=== PATIENT | female | born 1940 | race Caucasian/White ===

== ENCOUNTER 2016-12-28 06:46 | Inpatient (IN) | payer MEDICARE, OTHER ==
[~2016-12-28] VITALS: Ht 165.1 cm; Wt 68.2 kg
[2016-12-28] VITALS (10 sets, daily range): BP systolic 105–146; BP diastolic 54–88; PULSE 60–67; RESP 17–20; TEMP 98.7; Ht 165.1 cm; Wt 68.2 kg
[~2016-12-28 06:46] MED LIST: ACET-2047 PO; AMLO-145 PO; ASPI-664 PO; ATOR40TA68 PO; BISA10SU75 PO; CALC-543 PO; CLOP75TA27 PO; DEXL30CA2 PO; LISI10TA2 PO; LYR75 PO; METO-448 PO; NABU-83 PO; PANT40TA3 PO; ROSU5TAB5 PO; TRAM50TA2 PO
[2016-12-28] MEDS ORDERED: SOD CHLORIDE 0.9% 500 ML IV STA (06:52)
[2016-12-28] MEDS ORDERED: ONDANSETRON 4 MG INJ IV STA (06:52)
[2016-12-28] MEDS ORDERED: KETOROLAC 15 MG INJ IV STA (06:52)
--- NOTE | 2016-12-28 06:52 | ERA ---
ER Documentation Chief Complaint Date/Time DATE: 12/28/16 TIME: 06:51 Chief Complaint HPI 76-year-old woman here for abdominal pain and vomiting, history of gastritis, denies hematemesis denies blood per rectum or melena. She denies fevers or chills, no chest pain or shortness of breath, no loss of consciousness. ROS All systems reviewed and are negative except as per history of present illness. Medications Home Meds Reported Medications Potassium Chloride* (Potassium Chloride*) 8 Meq Capsule.er, 8 MEQ PO DAILY, CAP 12/28/16 Furosemide* (Furosemide*) 20 Mg Tablet, 20 MG PO DAILY, #60 TAB 12/28/16 Pantoprazole* (Protonix*) 40 Mg Tablet.dr, 40 MG PO DAILY, TAB 04/19/15 Metoprolol Tartrate* (Lopressor*) 25 Mg Tab, 25 MG PO BID, #60 TAB 04/19/15 Lisinopril* (Lisinopril*) 10 Mg Tablet, 10 MG PO DAILY, #30 TAB 04/19/15 Acetaminophen* (Acetaminophen*) 650 Mg Tablet, 650 MG PO Q6H Y for PAIN AND OR ELEVATED TEMP, #30 TAB 04/19/15 Clopidogrel Bisulfate (Clopidogrel) 75 Mg Tablet, 75 MG PO DAILY, #30 TAB 04/19/15 Atorvastatin* (Atorvastatin*) 40 Mg Tablet, 40 MG PO QHS, #30 TAB 04/19/15 Rosuvastatin Calcium* (Crestor*) 5 Mg Tablet, 10 MG PO 09/01/13 Pregabalin* (Lyrica*) 75 Mg Capsule, 75 MG PO DAILY, CAP 09/01/13 Dexlansoprazole (Dexilant) 30 Mg Cap..nina, 60 MG PO 09/01/13 Aspirin* (Aspirin* EC) 81 Mg Tablet.dr, 81 MG PO DAILY 09/01/13 Amlodipine Besylate* (Amlodipine Besylate*) 5 Mg Tablet, 5 MG PO DAILY, TAB 09/01/13 Tramadol HCl (Tramadol HCl) 50MG Tab, 50 MG PO BID, TAB 09/01/13 Nabumetone* (Nabumetone*) 750 Mg Tablet, 750 MG PO BID, TAB 09/01/13 Calcium Carb & Cit-Vitamin D3 (Calcium + D3 ER) 1 Each Tablet.er, 1 EACH PO DAILY 09/01/13 Bisacodyl* (Bisacodyl*) 10 Mg Supp, 10 MG PO DAILY Y for CONSTIPATION, SUPP 09/01/13 Allergies Allergies: Coded Allergies: No Known Allergy (Unverified , 09/02/13) PMhx/Soc Coronary artery disease status post non-STEMI with previous PCI and stent placement, atrial fibrillation, hypertension, dyslipidemia, osteoarthritis History of Surgery: Yes (back surgery and L hand surgery) Anesthesia Reaction: No Hx Neurological Disorder: No Hx Respiratory Disorders: No Hx Cardiac Disorders: Yes (HTN and dyslipidemia) Hx Psychiatric Problems: No Hx Miscellaneous Medical Probl: No Hx Alcohol Use: No Hx Substance Use: No Hx Tobacco Use: No FmHx Family History: No diabetes Physical Exam Vitals Per nurses records Physical Exam GENERAL: Well-developed, appears dehydrated, nauseous, afebrile HEENT: Dry mucous membranes, pink conjunctiva, no cervical spine tenderness or step-off deformities, no goiter, no jaundice or icterus, extraocular movements intact without pain. No submandibular induration, and no pharyngeal erythema NEURO: Alert and oriented 3, cranial nerves II through XII intact bilaterally, pupils equal round reactive to light, no focal deficits or facial asymmetry, sensation intact distally Strength 5/5 in upper and lower extremities bilaterally CARDIAC: Regular rate and rhythm, no murmurs rubs or gallops LUNGS: Clear bilaterally no wheezing crackles or stridor ABDOMEN: Soft nontender, no guarding, no rigidity, no rebound, no psoas sign no obturator sign. Normoactive bowel sounds SKIN: Warm and dry to touch, no abrasions, contusions, or hematomas, no lacerations, no ecchymosis, no target lesions, and without ulcers EXTREMITIES: No clubbing cyanosis or edema, calves are bilaterally symmetrical, no Homans sign, no popliteal cord sign. Distal pulses equal and bilateral PSYCH: Normal affect without agitation or irritability Results 24 hrs Laboratory Tests Test 12/28/16 07:05 White Blood Count 6.510^3/ul Red Blood Count 4.8510^6/ul Hemoglobin 13.7g/dl Hematocrit 39.1% Mean Corpuscular Volume 80.6fl Mean Corpuscular Hemoglobin 28.2pg Mean Corpuscular Hemoglobin Concent 35.0g/dl Red Cell Distribution Width 13.3% Platelet Count 62285^3/UL Mean Platelet Volume 10.7fl Neutrophils % 58.0% Lymphocytes % 27.8% Monocytes % 12.9% Eosinophils % 0.8% Basophils % 0.2% Nucleated Red Blood Cells % 0.0/100WBC Neutrophils # 3.810^3/ul Lymphocytes # 1.810^3/ul Monocytes # 0.810^3/ul Eosinophils # 0.110^3/ul Basophils # 0.010^3/ul Nucleated Red Blood Cells # 0.010^3/ul Sodium Level 122mmol/L Potassium Level 2.9mmol/L Chloride Level 84mmol/L Carbon Dioxide Level 23mmol/L Anion Gap 18 Blood Urea Nitrogen 12mg/dl Creatinine 0.77mg/dl Glucose Level 143mg/dl Calcium Level 10.2mg/dl Total Bilirubin 0.6mg/dl Direct Bilirubin 0.00mg/dl Indirect Bilirubin 0.6mg/dl Aspartate Amino Transf (AST/SGOT) 29IU/L Alanine Aminotransferase (ALT/SGPT) 42IU/L Alkaline Phosphatase 107IU/L Troponin I 0.027ng/ml Total Protein 8.0g/dl Albumin 4.7g/dl Globulin 3.30g/dl Albumin/Globulin Ratio 1.42 Lipase 111U/L Current Medications Medications (Trade) Dose Ordered Sig/Mabel Route PRN Reason Start Time Stop Time Status Last Admin Dose Admin Sodium Chloride (NS) 500 ml @ 500 mls/hr Q1H STAT IV 12/28/16 06:52 12/28/16 07:51 DC 12/28/16 07:13 Ondansetron HCl (Zofran Inj) 4 mg ONCE STAT IV 12/28/16 06:52 12/28/16 06:54 DC 12/28/16 07:10 Ketorolac Tromethamine (Toradol) 15 mg ONCE STAT IV 12/28/16 06:52 12/28/16 06:54 DC 12/28/16 07:10 Lorazepam (Ativan) 0.5 mg ONCE ONCE IV 12/28/16 07:00 12/28/16 07:01 DC 12/28/16 07:11 Potassium Chloride 40 meq 40 meq ONCE STAT PO 12/28/16 08:12 12/28/16 08:13 DC 12/28/16 08:18 Potassium Chloride 250 ml @ 62.5 mls/hr ONCE ONCE IVPB 12/28/16 08:30 12/28/16 12:29 DC 12/28/16 09:25 Magnesium Sulfate/ Dextrose (Magnesium Sulfate 1 Gm/D5W) 100 ml @ 100 mls/hr ONCE ONCE IVPB 12/28/16 08:30 12/28/16 09:29 DC 12/28/16 08:20 Procedures/MDM IV line was established patient placed on human relations professor rhythm strip revealed a sinus rhythm at about 70 bpm with upright P and T waves. Patient was afebrile. EKG performed, read by me revealed a normal sinus rhythm at 72 bpm, normal axis , right ventricular conduction delay at 100 ms with prolonged QT of 510 ms and flattened P and T waves consistent with acute hypokalemia. I administered 1 L normal saline intravenously, lorazepam 1 mg IV, Toradol 15 mg IV, Zofran 4 mg IV. Urine analysis was negative for infection. CBC was normal, electrolytes revealed hypokalemia 2.9, liver function tests normal, troponin negative. I administered potassium supplementation as well as magnesium 2 g IV. Critical Care: Time: 54 minutes, this was time separate from other billable procedures. Treatments/Evaluations: Close monitoring and treatment of unstable vital signs, cardiorespiratory, and neurologic status, while maintaining tight balance of fluid, respiratory, and cardiac interventions. Patient will be admitted to telemetry setting for continued medical management gastroenterology consultation Departure Diagnosis: Primary Impression: Abdominal pain Qualified Code: R10.13 - Epigastric pain Additional Impressions: Gastritis Qualified Code: K29.01 - Acute superficial gastritis with hemorrhage Acute hypokalemia Dehydration Condition: SEUN Gillespie MD Dec 28, 2016 06:52
[2016-12-28] MEDS ORDERED: LORAZEPAM 2 MG INJ IV ONE (07:00)
--- NOTE | 2016-12-28 07:28 | RADRPT ---
PROCEDURE: XR Chest 1 View. CLINICAL INDICATION: Abnormal breath sounds, abdominal pain. TECHNIQUE: AP view of the chest was obtained. COMPARISON: September 01, 2013 FINDINGS: The heart size is within normal limits. Calcified atherosclerosis is noted in the aorta. Median jose rnotomy wires overlie the heart. Subsegmental atelectasis is noted in the left lower lobe. No conso lidations are identified. No pneumothorax is seen. Osseous structures are intact. IMPRESSION: Calcified atherosclerosis in the aorta. Subsegmental atelectasis in the left lower lobe. RPTAT: AA .Landon Pulido MD, Date Time Electronically viewed and signed by .Landon Pulido MD, on 12/28/2016 07:27 .P/
[2016-12-28 07:31] LABS: BASOPHILS % 0.2 % (0.0-2.0); EOSINOPHILS # 0.1 10^3/ul (0.0-0.5); EOSINOPHILS % 0.8 % (0.0-7.0); HEMATOCRIT 39.1 % (37.0-47.0); HEMOGLOBIN 13.7 g/dl (12.0-16.0); LYMPHOCYTES # 1.8 10^3/ul (0.8-2.9); LYMPHOCYTES % 27.8 % (15.0-51.0); MEAN CORPUSCULAR HEMOGLOBIN 28.2 pg (29.0-33.0); MEAN CORPUSCULAR VOLUME 80.6 fl (82.0-101.0); MEAN PLATELET VOLUME 10.7 fl (7.4-10.4); MONOCYTE # 0.8 10^3/ul (0.3-0.9); MONOCYTES % 12.9 % (0.0-11.0); NEUTROPHIL # 3.8 10^3/ul (1.6-7.5); PLATELET COUNT 331 10^3/UL (140-415); RED BLOOD COUNT 4.85 10^6/ul (4.20-5.40); RED CELL DISTRIBUTION WIDTH 13.3 % (11.5-14.5); WHITE BLOOD COUNT 6.5 10^3/ul (4.8-10.8)
[2016-12-28 07:47] LABS: ALBUMIN 4.7 g/dl (3.3-4.9); ALBUMIN/GLOBULIN RATIO 1.42; BILIRUBIN,INDIRECT 0.6 mg/dl (0-1.1); BILIRUBIN,TOTAL 0.6 mg/dl (0.2-1.3); CALCIUM 10.2 mg/dl (8.4-10.2); CREATININE 0.77 mg/dl (0.44-1.00)
[2016-12-28 07:57] LABS: TROPONIN-I 0.027 ng/ml (0.00-0.12)
[2016-12-28 08:11] LABS: POTASSIUM 2.9 mmol/L (3.5-5.1)
[2016-12-28] MEDS ORDERED: POTASSIUM CHLORIDE (SR) 20 MEQ TAB PO STA (08:12)
[2016-12-28] MEDS ORDERED: MAGNESIUM SULFATE 1 GM/D5W 100 ML IVPB ONE (08:30)
[2016-12-28] MEDS ORDERED: POTASSIUM CHLORIDE 250 ML IVPB ONE (08:30)
[2016-12-28] MEDS ORDERED: FURO20TA3 PO (09:36)
[2016-12-28] MEDS ORDERED: POTA8CAP PO (09:36)
--- NOTE | 2016-12-28 14:08 | HP ---
DATE OF ADMISSION: 12/28/2016 CHIEF COMPLAINT: Abdominal pain with episodes of nausea and vomiting, and burning with urination. HISTORY OF PRESENT ILLNESS: The patient is a 76-year-old Telugu female with a past medical history positive for coronary artery disease. The patient has a history of non ST-elevation myocardial infarction in April 2015, and had a cardiac catheterization with angioplasty and stenting of the ostial left circumflex artery and aspiration thrombectomy of the distal left main and proximal left circumflex artery. Patient underwent open heart surgery two months ago at [facility] by Dr. Wood. The patient currently follows with her quality officer Dr. Lopez at [place]. The patient denies any chest pain. Denies any shortness of breath. However, patient stated that she developed abdominal pain a couple of days ago, accompanied by episodes of nausea and vomiting. The patient denies hematochezia. The patient also stated that she had EGD about 4-5 months ago at [facility]. Does not remember the name of the market manager. The patient was diagnosed with gastritis and was on gastritis medication for the last 4 months, which she has currently stopped, which was currently discontinued by her primary care physician. In the emergency room, patient underwent a chest x-ray, which revealed calcified atherosclerosis in aorta, subsegmental atelectasis in the left lower lobe, and median sternotomy wires overlying the heart. The patient denies any fever. No leukocytosis noted. However, patient had low potassium of 2.9, which was replaced in the emergency room. The patient will be admitted for further evaluation and management. PAST MEDICAL HISTORY: It is positive for coronary artery disease status post recent CABG, use of SAMUEL according to patient's son; however, details are not available. History of atrial fibrillation, hypertension, dyslipidemia, osteoarthritis. Past surgical history of recent CABG 2 months ago, history of cardiac stent placement in April 2015 per HPI, status post bilateral carpal tunnel syndrome surgery many years ago, status post cholecystectomy and status post back surgery for herniated disc many years ago. FAMILY HISTORY: Positive for extensive coronary artery disease in multiple family members, including mother, father and brothers. The patient's brother of ID at age 50. SOCIAL HISTORY: Patient denies any alcohol use and denies any tobacco use. Denies any illicit drug use. Lives with family. ALLERGIES: NO KNOWN ALLERGIES. MEDICATIONS: Include metoprolol, lisinopril, amlodipine, aspirin, atorvastatin, bisacodyl, Plavix, Lasix, nabumetone, potassium chloride, Lyrica, tramadol, calcium carbonate plus vitamin D, Dexilant, Crestor. REVIEW OF SYSTEMS: Twelve-point review of system is negative, unless what is mentioned in HPI. PHYSICAL EXAMINATION: GENERAL: Well-developed, well-nourished female, in no acute distress. VITAL SIGNS: Temperature is 97.8, pulse is 72, blood pressure 123/54, respiratory rate 17, oxygen saturation is 95 percent on room air. HEENT: Head is atraumatic, normocephalic. Pupils equal, round, reactive to light and accommodation. Oral mucosa is pink and moist. NECK: Supple. No cervical lymphadenopathy. No thyromegaly. CHEST: Lungs clear bilaterally. There are no rhonchi, wheezes, rales noted. CARDIOVASCULAR: Normal S1, S2. No murmurs, gallops, clicks, rubs noted. Chest surgical incision is intact, healed. ABDOMEN: Round, soft, nondistended. Bowel sounds present. Patient has generalized tenderness. EXTREMITIES: No edema, clubbing, cyanosis. Pulses equal bilaterally, 2+. SKIN: No rash. No petechiae noted. NEUROLOGIC: Patient is awake, alert, and oriented x4. Motor strength is 5/5 in all extremities. LABORATORY DATA: On admission, CBC white blood cells 6.5, hemoglobin 13.7, hematocrit 39.1, platelets 331. Chemistry, sodium is 122, potassium 2.9, chloride 84, carbon dioxide 23, anion gap of 18, BUN is 12, creatinine 0.77, glucose 143, AST 29, ALT is 42, alkaline phosphate is 107, lipase is 111. ASSESSMENT AND PLAN: 1. Abdominal pain. We will obtain a UA and urine culture to rule out urinary tract infection. 2. History of urinary retention. Continue to monitor intake and output. Will ask Dr. Camacho to see patient in gastroenterology consultation for abdominal pain. 3. Severe hypokalemia. Potassium replaced. Continue to monitor potassium. 4. Status post recent coronary artery bypass graft. Continue patient on aspirin and Plavix. 5. Dyslipidemia. Continue Crestor. 6. Hypertension. 7. Paroxysmal atrial fibrillation. Patient is currently in sinus rhythm. 8. Will continue Pepcid for peptic ulcer disease prophylaxis. Sequential compression devices for deep venous thrombosis prophylaxis. 9. Further recommendations based on clinical course. Plan of care discussed with Dr. Jaquez. Dictated By: Samantha Hough NP /eugenio/shine /Document#: [id number]
[2016-12-28 15:44] LABS: ADD UMIC NO; UR ASCORBIC ACID NEGATIVE (NEGATIVE); UR BILIRUBIN (Dip) NEGATIVE (NEGATIVE); UR BLOOD (Dip) NEGATIVE (NEGATIVE); UR CLARITY CLEAR (CLEAR); UR COLOR YELLOW (YELLOW); UR GLUCOSE (Dip) NEGATIVE (NEGATIVE); UR KETONES (Dip) NEGATIVE (NEGATIVE); UR LEUKOCYTE ESTERASE (Dip) NEGATIVE Leu/ul (NEGATIVE); UR NITRITE (Dip) NEGATIVE (NEGATIVE); UR TOTAL PROTEIN (Dip) NEGATIVE (NEGATIVE); UR UROBILINOGEN (Dip) NEGATIVE (NEGATIVE)
[2016-12-28] MEDS: ATORVASTATIN 40 MG TAB PO SCH (21:01)
[2016-12-28] MEDS: METOPROLOL 25 MG TAB PO SCH (21:03)
[2016-12-29] VITALS (12 sets, daily range): BP systolic 102–119; BP diastolic 55–63; PULSE 50–75; RESP 16–19
[2016-12-29 07:33] LABS: BASOPHILS % 0.3 % (0.0-2.0); EOSINOPHILS # 0.1 10^3/ul (0.0-0.5); EOSINOPHILS % 0.8 % (0.0-7.0); HEMATOCRIT 34.5 % (37.0-47.0); HEMOGLOBIN 11.8 g/dl (12.0-16.0); LYMPHOCYTES # 1.5 10^3/ul (0.8-2.9); LYMPHOCYTES % 18.9 % (15.0-51.0); MEAN CORPUSCULAR HEMOGLOBIN 28.2 pg (29.0-33.0); MEAN CORPUSCULAR HGB CONC 34.2 g/dl (32.0-37.0); MEAN CORPUSCULAR VOLUME 82.3 fl (82.0-101.0); MEAN PLATELET VOLUME 10.8 fl (7.4-10.4); MONOCYTE # 0.7 10^3/ul (0.3-0.9); MONOCYTES % 8.4 % (0.0-11.0); NEUTROPHIL # 5.6 10^3/ul (1.6-7.5); NEUTROPHILS % 71.3 % (39.0-77.0); PLATELET COUNT 272 10^3/UL (140-415); RED BLOOD COUNT 4.19 10^6/ul (4.20-5.40); RED CELL DISTRIBUTION WIDTH 13.8 % (11.5-14.5); WHITE BLOOD COUNT 7.8 10^3/ul (4.8-10.8)
[2016-12-29 08:06] LABS: CALCIUM 9.2 mg/dl (8.4-10.2); CREATININE 0.64 mg/dl (0.44-1.00); POTASSIUM 3.9 mmol/L (3.5-5.1)
[2016-12-29] MEDS: ASPIRIN (EC) 81 MG TAB PO SCH (09:05)
[2016-12-29] MEDS: PREGABALIN 75 MG CAP PO SCH (09:06)
[2016-12-29] MEDS: CLOPIDOGREL 75 MG TAB PO SCH (09:06)
[2016-12-29] MEDS: AMLODIPINE 5 MG TAB PO SCH (09:09)
[2016-12-29] MEDS: METOPROLOL 25 MG TAB PO SCH ×2 (09:10→20:02)
[2016-12-29] MEDS: LISINOPRIL 10 MG TAB PO SCH (09:10)
[2016-12-29] MEDS ORDERED: BARIUM SULF 2% 450 ML BTL (BERRY SMOOTHIE) PO SCH ×2 (09:30)
--- NOTE | 2016-12-29 10:28 | CONS ---
DATE OF ADMISSION: 12/28/2016 DATE OF CONSULTATION: 12/29/[address] Jaquez: Thank you for the referral. REASON FOR CONSULTATION: Epigastric pain for last 4 months. HISTORY OF PRESENT ILLNESS: A 76-year-old female with a history of coronary artery disease, status post coronary artery bypass graft 2 months ago at [facility], who comes to the hospital complaining of epigastric pain for the last 4 months. She had upper endoscopy done at [facility] by another semiconductor processing technician. Gastritis was diagnosed. She was treated with PPI for 2 months. No relief in her symptoms. The patient has lost significant weight partly due to her hospitalization and bypass surgery and partly she claims due to gastritis. No GI bleeding. No chest pain. No shortness of breath now. 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 She has a persistent low potassium. PAST MEDICAL HISTORY: Positive for coronary artery disease, status post coronary artery bypass graft, SAMUEL, atrial fibrillation hypertension, dyslipidemia, osteoarthritis. PAST SURGICAL HISTORY: Bypass surgery, bilateral carpal tunnel syndrome surgery. As per the son, patient did not have a gallbladder surgery. Back surgery. FAMILY HISTORY: Positive for extensive coronary artery disease. SOCIAL HISTORY: Denies of smoking or drinking alcohol. No recreational drugs. MEDICATION: Reviewed. REVIEW OF SYSTEMS: Otherwise negative. Discussed with the son and all the information gathered from him. PHYSICAL EXAMINATION: GENERAL APPEARANCE: Thin built, Nourished, not in distress. VITAL SIGNS: Stable. HEENT: Unremarkable. NECK: Supple. No thyromegaly. No lymphadenopathy. HEART: No murmur, gallop, or click. LUNGS: Clear. ABDOMEN: Benign, except for the tenderness in the epigastric area. EXTREMITIES: No edema. NEUROLOGIC: Grossly within normal limits. LABORATORY AND DIAGNOSTIC DATA: Hematocrit is 34, normochromic normocytic. Potassium was 2.9, it has corrected. Urine is negative. IMAGING STUDIES: Has not been done, but the chest x-ray here was negative. IMPRESSION: 1. Persistent epigastric pain. Etiology is unclear. Rule out pancreatic lesion, rule out gallbladder or biliary pathology. Rule out peptic ulcer disease or gastritis. 2. Status post coronary artery bypass graft. 3. Hypertension. 4. Dyslipidemia. 5. Atrial fibrillation. 6. Urinary retention. PLAN: Continue all the medication. We will get a CAT scan of the abdomen and pelvis done. As per the son, it was not done in last 6-8 months and after that, we will decide whether patient needs endoscopy or not. She had a colonoscopy 6 years ago, which was negative as per the son. Dictated By: Ulices Camacho MD /eugenio/joi /Document#: [id number] ; Dr. Jaquez
--- NOTE | 2016-12-29 13:27 | RADRPT ---
PROCEDURE: CT scan of the abdomen and pelvis without IV contrast. CLINICAL INDICATION: Abdominal pain, nausea, vomiting and dysuria. Status post coronary artery dis ease with CABG 2 months ago. TECHNIQUE: Thin section axial, coronal and sagittal images were performed through the abdomen and pelvis without contrast utilizing a [employer] VCT [employer] CT scanner. Radiation Dose: CTDI: 11.63 and DLP: 576.29 One or more of the following dose reduction techniques were used: - Automated exposure control. - Adjustment of the mA and/or kV according to patient size. Use of iterative reconstruction technique. COMPARISON: Chest x-ray 05/15/2016 06:18 a.m. FINDINGS: Soft tissues: There is a scar in the midline of the lower chest associated with a prior median reynolds otomy.. Lungs and pleural spaces: There is some compressive atelectasis in the periphery of the right and le ft lower lobes associated with a poor inspiratory effort. There are left diaphragm is elevated. No p leural effusion is noted. Heart: The heart is normal in size. Median sternotomy wires are noted in the lower sternum. No signi ficant pericardial effusion is identified. The liver, common bile duct and gallbladder: There are adjacent 3 mm calcifications in the lateral s egment of the left lobe the liver associated with a 0.3 mm lesion. The noncalcified area of the lesi on is poorly visualized due to lack of intravenous contrast. Ultrasound may be helpful in further ch aracterization. The liver is normal in size. No intrahepatic biliary ductal dilatation is identified. The gallbladde r and gallbladder wall are normal. There is some sludge with tiny stones in the dependent portion of the gallbladder. Gastrointestinal: There is no evidence of a hiatal hernia. The stomach is incompletely distended wit hout the gastric wall thickening. The small bowel loops have a normal caliber. There is a tiny midli ne umbilical hernia which contains only fat. The neck of the hernia measures 6.2 mm transverse. Ther e is no evidence of diverticulosis or diverticulitis. The vermiform appendix is not visualized. Pancreas: Normal. The extrahepatic common bile duct is normal. Kidneys, bladder and adrenal glands : The adrenal glands are normal. The kidneys are normal. The uri nary bladder is normal. There are phleboliths in the lower pelvis. Spleen: Normal. Lymph nodes: Normal. Reproductive system and pelvis : The uterus is retroflexed but normal in size. No free fluid is note d in the pelvis and no abnormal adnexal masses are observed. Bony elements: There are degenerative changes of the lower thoracic and lumbar spine. There is mild grade 1 anterolisthesis of L5 relative to L4 with mild disc space narrowing at L5-S1. There are dege nerative changes in the articular facets at L4-5 and L5-S1. The neural canal is normal in size. Ther e is mild bony narrowing of the nerve root canals at L4-5 and L5-S1. Vasculature: There are vascular calcifications in the thoracic aorta, abdominal aorta, common iliac arteries, internal and external iliac and common femoral arteries. IMPRESSION: 1. Sludge and multiple tiny stones are noted in the gallbladder. 2. Poorly visualized partially calcified lesion in the right lobe of the liver which may be the res ult of a granuloma. Further characterization with a abdominal sonogram is recommended. 3. Status post median sternotomy. 4. Atherosclerotic vascular disease. 5. Retroverted uterus. 6. Tiny midline umbilical hernia containing only fat. RPTAT:AAJJ Physician Simi Date Time Electronically viewed and signed by Physician Simi on 12/29/2016 13:26 DEAN/
--- NOTE | 2016-12-29 19:24 | PN ---
Date/Time of Note Date/Time of Note DATE: 12/29/16 TIME: 19:20 Assessment/Plan VTE Prophylaxis VTE Prophylaxis Intervention: SCD's Lines/Catheters IV Catheter Type (from [facility] [place]): Saline Lock Urinary Cath still in place: No Assessment/Plan Assessment/Plan - Abdominal pain. Sludge and multiple tiny stones are noted in the gallbladder per CT abd. Dr. Camacho is following in gastroenterology consultation for abdominal pain. - Severe hypokalemia. Potassium replaced. Continue to monitor potassium. - Status post recent coronary artery bypass graft. Continue patient on aspirin and Plavix. - Dyslipidemia. Continue Crestor. - Hypertension. - Paroxysmal atrial fibrillation. Patient is currently in sinus rhythm. Further recommendations based on clinical course. Plan of care discussed with Dr. Jaquez. Exam/Review of Systems Vital Signs Vitals Vital Signs Date Time Temp Pulse Resp B/P Pulse Ox O2 Delivery O2 Flow Rate FiO2 12/29/16 16:36 57 12/29/16 15:43 97.7 16 116/55 95 Intake and Output 12/28/16 12/28/16 12/29/16 15:00 23:00 07:00 Intake Total 250 ml 240 ml Output Total 250 ml 900 ml Balance 250 ml -250 ml -660 ml Exam Constitutional: alert Neck: supple Respiratory: normal air movement Cardiovascular: nl pulses Gastrointestinal: soft, tender Extremities: normal pulses Results Result Diagram: 12/29/16 0651 12/29/16 0652 Results 24 hrs Laboratory Tests Test 12/29/16 06:51 12/29/16 06:52 White Blood Count 7.8 Red Blood Count 4.19 L Hemoglobin 11.8 L Hematocrit 34.5 L Mean Corpuscular Volume 82.3 Mean Corpuscular Hemoglobin 28.2 L Mean Corpuscular Hemoglobin Concent 34.2 Red Cell Distribution Width 13.8 Platelet Count 272 Mean Platelet Volume 10.8 H Neutrophils % 71.3 Lymphocytes % 18.9 Monocytes % 8.4 Eosinophils % 0.8 Basophils % 0.3 Nucleated Red Blood Cells % 0.0 Neutrophils # 5.6 Lymphocytes # 1.5 Monocytes # 0.7 Eosinophils # 0.1 Basophils # 0.0 Nucleated Red Blood Cells # 0.0 Sodium Level 126 L Potassium Level 3.9 Chloride Level 96 #L Carbon Dioxide Level 26 Anion Gap 8 # Blood Urea Nitrogen 10 Creatinine 0.64 Glucose Level 93 # Calcium Level 9.2 Medications Medications Current Medications Amlodipine Besylate (Norvasc) 5 mg DAILY PO Last administered on 12/29/16 09: 09; Admin Dose 5 MG; Start 12/29/16 at 09:00 Aspirin (Halfprin) 81 mg DAILY PO Last administered on 12/29/16 09:05; Admin Dose 81 MG; Start 12/29/16 at 09:00 Atorvastatin Calcium (Lipitor) 40 mg QHS PO Last administered on 12/28/16 21: 01; Admin Dose 40 MG; Start 12/28/16 at 21:00 Clopidogrel Bisulfate (plaVIX) 75 mg DAILY PO Last administered on 12/29/16 09 :06; Admin Dose 75 MG; Start 12/29/16 at 09:00 Lisinopril (Zestril) 10 mg DAILY PO Last administered on 12/29/16 09:10; Admin Dose 10 MG; Start 12/29/16 at 09:00 Metoprolol Tartrate (Lopressor) 25 mg BID PO Last administered on 12/29/16 09: 10; Admin Dose 25 MG; Start 12/28/16 at 21:00 Pregabalin (Lyrica) 75 mg DAILY PO Last administered on 12/29/16 09:06; Admin Dose 75 MG; Start 12/29/16 at 09:00 DIAN LENNON Dec 29, 2016 19:24
[2016-12-29] MEDS: ATORVASTATIN 40 MG TAB PO SCH (20:00)
[2016-12-30] VITALS (11 sets, daily range): BP systolic 106–139; BP diastolic 50–95; PULSE 50–70; RESP 16–20
[2016-12-30 08:47] LABS: BASOPHILS % 0.5 % (0.0-2.0); EOSINOPHILS % 0.7 % (0.0-7.0); HEMATOCRIT 36.6 % (37.0-47.0); LYMPHOCYTES # 1.4 10^3/ul (0.8-2.9); LYMPHOCYTES % 23.7 % (15.0-51.0); MEAN CORPUSCULAR HEMOGLOBIN 27.7 pg (29.0-33.0); MEAN CORPUSCULAR HGB CONC 32.8 g/dl (32.0-37.0); MEAN CORPUSCULAR VOLUME 84.5 fl (82.0-101.0); MEAN PLATELET VOLUME 10.5 fl (7.4-10.4); MONOCYTE # 0.6 10^3/ul (0.3-0.9); MONOCYTES % 10.2 % (0.0-11.0); NEUTROPHIL # 3.8 10^3/ul (1.6-7.5); NEUTROPHILS % 64.7 % (39.0-77.0); PLATELET COUNT 273 10^3/UL (140-415); RED BLOOD COUNT 4.33 10^6/ul (4.20-5.40); WHITE BLOOD COUNT 5.9 10^3/ul (4.8-10.8)
[2016-12-30 09:10] LABS: CALCIUM 8.8 mg/dl (8.4-10.2); CREATININE 0.63 mg/dl (0.44-1.00); POTASSIUM 4.7 mmol/L (3.5-5.1)
[2016-12-30] MEDS: CLOPIDOGREL 75 MG TAB PO SCH (09:13)
[2016-12-30] MEDS: ASPIRIN (EC) 81 MG TAB PO SCH (09:14)
[2016-12-30] MEDS: PREGABALIN 75 MG CAP PO SCH (09:14)
[2016-12-30] MEDS: METOPROLOL 25 MG TAB PO SCH ×2 (09:15→20:35)
[2016-12-30] MEDS: LISINOPRIL 10 MG TAB PO SCH (09:16)
[2016-12-30] MEDS: AMLODIPINE 5 MG TAB PO SCH (09:16)
--- NOTE | 2016-12-30 14:29 | PN ---
Date/Time of Note Date/Time of Note DATE: 12/30/16 TIME: 14:16 Assessment/Plan VTE Prophylaxis VTE Prophylaxis Intervention: SCD's Lines/Catheters IV Catheter Type (from [facility]): Saline Lock Urinary Cath still in place: No Assessment/Plan Chief Complaint/Hosp Course Patient tolerates mechanical soft diet well, denies nausea and vomiting, abdominal tenderness improved but still present. Assessment/Plan - Abdominal pain. Sludge and multiple tiny stones are noted in the gallbladder per CT abd. Dr. Camacho is following in gastroenterology consultation. - Severe hypokalemia. Potassium replaced. Continue to monitor potassium. - Status post recent coronary artery bypass graft. Continue patient on aspirin and Plavix. - Dyslipidemia. Continue Crestor. - Hypertension. - Paroxysmal atrial fibrillation. Patient is currently in sinus rhythm. Further recommendations based on clinical course. Plan of care discussed with Dr. Jaquez. Problems: Exam/Review of Systems Vital Signs Vitals Vital Signs Date Time Temp Pulse Resp B/P Pulse Ox O2 Delivery O2 Flow Rate FiO2 12/30/16 12:15 58 12/30/16 12:12 98.1 17 106/50 98 Intake and Output 12/29/16 12/29/16 12/30/16 15:00 23:00 07:00 Intake Total 1480 ml 300 ml Balance 1480 ml 300 ml Exam Constitutional: alert Neck: supple Respiratory: normal air movement Cardiovascular: nl pulses Gastrointestinal: soft, tender Extremities: normal pulses Results Result Diagram: 12/30/16 0818 12/30/16 0818 Results 24 hrs Laboratory Tests Test 12/30/16 08:18 White Blood Count 5.9 # Red Blood Count 4.33 Hemoglobin 12.0 Hematocrit 36.6 L Mean Corpuscular Volume 84.5 Mean Corpuscular Hemoglobin 27.7 L Mean Corpuscular Hemoglobin Concent 32.8 Red Cell Distribution Width 14.0 Platelet Count 273 Mean Platelet Volume 10.5 H Neutrophils % 64.7 Lymphocytes % 23.7 Monocytes % 10.2 Eosinophils % 0.7 Basophils % 0.5 Nucleated Red Blood Cells % 0.0 Neutrophils # 3.8 Lymphocytes # 1.4 Monocytes # 0.6 Eosinophils # 0.0 Basophils # 0.0 Nucleated Red Blood Cells # 0.0 Sodium Level 133 L Potassium Level 4.7 Chloride Level 102 Carbon Dioxide Level 25 Anion Gap 11 Blood Urea Nitrogen 11 Creatinine 0.63 Glucose Level 102 Calcium Level 8.8 Medications Medications Current Medications Amlodipine Besylate (Norvasc) 5 mg DAILY PO Last administered on 12/30/16 09: 16; Admin Dose 5 MG; Start 12/29/16 at 09:00 Aspirin (Halfprin) 81 mg DAILY PO Last administered on 12/30/16 09:14; Admin Dose 81 MG; Start 12/29/16 at 09:00 Atorvastatin Calcium (Lipitor) 40 mg QHS PO Last administered on 12/29/16 20: 00; Admin Dose 40 MG; Start 12/28/16 at 21:00 Clopidogrel Bisulfate (plaVIX) 75 mg DAILY PO Last administered on 12/30/16 09 :13; Admin Dose 75 MG; Start 12/29/16 at 09:00 Lisinopril (Zestril) 10 mg DAILY PO Last administered on 12/30/16 09:16; Admin Dose 10 MG; Start 12/29/16 at 09:00 Metoprolol Tartrate (Lopressor) 25 mg BID PO Last administered on 12/30/16 09: 15; Admin Dose 25 MG; Start 12/28/16 at 21:00 Pregabalin (Lyrica) 75 mg DAILY PO Last administered on 12/30/16 09:14; Admin Dose 75 MG; Start 12/29/16 at 09:00 DIAN LENNON Dec 30, 2016 14:28
--- NOTE | 2016-12-30 19:07 | CONS ---
Date/Time of Note Date/Time of Note DATE: 12/30/16 TIME: 19:05 Assessment/Plan Assessment/Plan Additional Assessment/Plan IMPRESSION: 1. Persistent epigastric pain. Etiology is unclear. Rule out pancreatic lesion, rule out gallbladder or biliary pathology. Rule out peptic ulcer disease or gastritis. 2. Status post coronary artery bypass graft. 3. Hypertension. 4. Dyslipidemia. 5. Atrial fibrillation. 6. Urinary retention. 7. Gallstone Plan Patient might pain might be related to gallbladder disease however I would like to do EGD to make sure there is no upper GI pathology. Continue present care Consultation Date/Type/Reason Admit Date/Time Dec 28, 2016 at 08:53 Initial Consult Date 24 HR Interval Summary Free Text/Dictation Patient continues to have epigastric pain Exam/Review of Systems Vital Signs Vitals Vital Signs Date Time Temp Pulse Resp B/P Pulse Ox O2 Delivery O2 Flow Rate FiO2 12/30/16 16:17 70 12/30/16 15:55 98.0 16 110/55 95 Intake and Output 12/29/16 12/29/16 12/30/16 15:00 23:00 07:00 Intake Total 1480 ml 300 ml Balance 1480 ml 300 ml Exam Constitutional: alert, oriented, well developed Psych: nl mood/affect, no complaints Head: atraumatic, normocephalic Eyes: EOMI, PERRL, nl conjunctiva, nl lids, nl sclera ENMT: nl external ears & nose, nl lips & teeth, nl nasal mucosa & septum Neck: non-tender, supple Respiratory: clear to auscultation, normal air movement Cardiovascular: nl pulses, regular rate and rhythm Gastrointestinal: nl liver, spleen, non-tender, soft Musculoskeletal: nl extremities to inspection, nl gait and stance Extremities: normal pulses Neurological: LINUX SOLARIS ADMINISTRATOR II-XII intact, nl mental status, nl speech, nl strength Skin: nl turgor, No rash or lesions Lymph: nl lymph nodes Results Result Diagram: 12/30/1618 12/30/16 0818 Results 24 hrs Laboratory Tests Test 12/30/16 08:18 White Blood Count 5.9 # Red Blood Count 4.33 Hemoglobin 12.0 Hematocrit 36.6 L Mean Corpuscular Volume 84.5 Mean Corpuscular Hemoglobin 27.7 L Mean Corpuscular Hemoglobin Concent 32.8 Red Cell Distribution Width 14.0 Platelet Count 273 Mean Platelet Volume 10.5 H Neutrophils % 64.7 Lymphocytes % 23.7 Monocytes % 10.2 Eosinophils % 0.7 Basophils % 0.5 Nucleated Red Blood Cells % 0.0 Neutrophils # 3.8 Lymphocytes # 1.4 Monocytes # 0.6 Eosinophils # 0.0 Basophils # 0.0 Nucleated Red Blood Cells # 0.0 Sodium Level 133 L Potassium Level 4.7 Chloride Level 102 Carbon Dioxide Level 25 Anion Gap 11 Blood Urea Nitrogen 11 Creatinine 0.63 Glucose Level 102 Calcium Level 8.8 Medications Medications Current Medications Amlodipine Besylate (Norvasc) 5 mg DAILY PO Last administered on 12/30/16 09: 16; Admin Dose 5 MG; Start 12/29/16 at 09:00 Aspirin (Halfprin) 81 mg DAILY PO Last administered on 12/30/16 09:14; Admin Dose 81 MG; Start 12/29/16 at 09:00 Atorvastatin Calcium (Lipitor) 40 mg QHS PO Last administered on 12/29/16 20: 00; Admin Dose 40 MG; Start 12/28/16 at 21:00 Clopidogrel Bisulfate (plaVIX) 75 mg DAILY PO Last administered on 12/30/16 09 :13; Admin Dose 75 MG; Start 12/29/16 at 09:00 Lisinopril (Zestril) 10 mg DAILY PO Last administered on 12/30/16 09:16; Admin Dose 10 MG; Start 12/29/16 at 09:00 Metoprolol Tartrate (Lopressor) 25 mg BID PO Last administered on 12/30/16 09: 15; Admin Dose 25 MG; Start 12/28/16 at 21:00 Pregabalin (Lyrica) 75 mg DAILY PO Last administered on 12/30/16 09:14; Admin Dose 75 MG; Start 12/29/16 at 09:00 MERT AGUAYO MD Dec 30, 2016 19:07
[2016-12-30] MEDS: ATORVASTATIN 40 MG TAB PO SCH (20:34)
[2016-12-31] VITALS (21 sets, daily range): BP systolic 116–179; BP diastolic 50–77; PULSE 52–75; RESP 16–20
[2016-12-31 08:53] LABS: BASOPHILS % 0.4 % (0.0-2.0); EOSINOPHILS # 0.1 10^3/ul (0.0-0.5); EOSINOPHILS % 0.9 % (0.0-7.0); HEMATOCRIT 38.5 % (37.0-47.0); HEMOGLOBIN 12.5 g/dl (12.0-16.0); LYMPHOCYTES # 1.6 10^3/ul (0.8-2.9); LYMPHOCYTES % 19.6 % (15.0-51.0); MEAN CORPUSCULAR HEMOGLOBIN 28.3 pg (29.0-33.0); MEAN CORPUSCULAR HGB CONC 32.5 g/dl (32.0-37.0); MEAN CORPUSCULAR VOLUME 87.1 fl (82.0-101.0); MEAN PLATELET VOLUME 10.7 fl (7.4-10.4); MONOCYTE # 0.7 10^3/ul (0.3-0.9); MONOCYTES % 8.9 % (0.0-11.0); NEUTROPHIL # 5.8 10^3/ul (1.6-7.5); NEUTROPHILS % 69.8 % (39.0-77.0); PLATELET COUNT 278 10^3/UL (140-415); RED BLOOD COUNT 4.42 10^6/ul (4.20-5.40); RED CELL DISTRIBUTION WIDTH 13.9 % (11.5-14.5); WHITE BLOOD COUNT 8.2 10^3/ul (4.8-10.8)
[2016-12-31] MEDS: PREGABALIN 75 MG CAP PO SCH (09:00)
[2016-12-31] MEDS: AMLODIPINE 5 MG TAB PO SCH (09:00)
[2016-12-31] MEDS: ASPIRIN (EC) 81 MG TAB PO SCH (09:00)
[2016-12-31] MEDS: LISINOPRIL 10 MG TAB PO SCH (09:00)
[2016-12-31] MEDS: METOPROLOL 25 MG TAB PO SCH ×2 (09:00→20:22)
[2016-12-31] MEDS: CLOPIDOGREL 75 MG TAB PO SCH (09:00)
[2016-12-31 09:13] LABS: CALCIUM 9.2 mg/dl (8.4-10.2); CREATININE 0.64 mg/dl (0.44-1.00); POTASSIUM 4.6 mmol/L (3.5-5.1)
[2016-12-31] MEDS ORDERED: LIDOCAINE 2% (SDV) 5 ML INJ ONE (18:22)
[2016-12-31] MEDS ORDERED: PROPOFOL 20 ML ONE (18:22)
--- NOTE | 2016-12-31 18:37 | OPPN ---
Date/Time of Note Date/Time of Note DATE: 12/31/16 TIME: 18:34 Proc Note GI Procedure Date 12/31/16 Procedure Performed: Endoscopy Surgeon see signature line Dormitory Counselor none Anesthesia Type: MAC Tourniquet Time none EBL none Transfusion required none Biopsy 1: 4 biopsies from stomach Grafts/Implants none Tubes/Drains none Complication(s) none Pt Condition post procedure: stable Disposition: PACU Indications: upper abd Sx despite ther Operative\Procedure Findings 1. Gastritis 2. Z line at 40 cm Procedure Description EGD with biopsy MERT AGUAYO MD Dec 31, 2016 18:37
[2016-12-31] MEDS ORDERED: ONDANSETRON 4 MG INJ IV PRN (19:00)
--- NOTE | 2016-12-31 20:18 | PN ---
Date/Time of Note Date/Time of Note DATE: 12/31/16 TIME: 19:54 Assessment/Plan VTE Prophylaxis VTE Prophylaxis Intervention: other Lines/Catheters IV [facility] Type [facility]from [facility] Peripheral IV Urinary Cath still in place: No Assessment/Plan Assessment/Plan - Abdominal pain. Sludge and multiple tiny stones are noted in the gallbladder per CT abd. Dr. Camacho is following in gastroenterology consultation. - sp EGD - Severe hypokalemia. Potassium replaced. Continue to monitor potassium. - Status post recent coronary artery bypass graft. Continue patient on aspirin and Plavix. - Dyslipidemia. Continue Crestor. - Hypertension. - Paroxysmal atrial fibrillation. Patient is currently in sinus rhythm. Further recommendations based on clinical course. Plan of care discussed with Dr. Jaquez. Subjective 24 Hr Interval Summary Free Text/Dictation sp EGD, arrived on unit, afebrile, dw staff- mechanical soft diet per GI. Denies any discomfort. ENT: no complaints Respiratory: no complaints Cardiovascular: no complaints Gastrointestinal: no complaints Genitourinary: no complaints Musculoskeletal: no complaints Exam/Review of Systems Vital Signs Vitals Vital Signs Date Time Temp Pulse Resp B/P Pulse Ox O2 Delivery O2 Flow Rate FiO2 12/31/16 18:45 98.8 18 148/61 100 Nasal Cannula 2.0 12/31/16 17:51 67 Intake and Output 12/30/16 12/30/16 12/31/16 15:00 23:00 07:00 Intake Total 880 ml 400 ml Balance 880 ml 400 ml Exam Constitutional: alert, well developed Eyes: EOMI, nl conjunctiva Respiratory: clear to auscultation, diminished breath sounds Cardiovascular: nl pulses Gastrointestinal: soft Musculoskeletal: nl extremities to inspection Extremities: normal pulses Neurological: nl mental status, nl speech Results Result Diagram: 12/31/16 0755 12/31/16 0755 Results 24 hrs Laboratory Tests Test 12/31/16 07:55 White Blood Count 8.2 # Red Blood Count 4.42 Hemoglobin 12.5 Hematocrit 38.5 Mean Corpuscular Volume 87.1 Mean Corpuscular Hemoglobin 28.3 L Mean Corpuscular Hemoglobin Concent 32.5 Red Cell Distribution Width 13.9 Platelet Count 278 Mean Platelet Volume 10.7 H Neutrophils % 69.8 Lymphocytes % 19.6 Monocytes % 8.9 Eosinophils % 0.9 Basophils % 0.4 Nucleated Red Blood Cells % 0.0 Neutrophils # 5.8 Lymphocytes # 1.6 Monocytes # 0.7 Eosinophils # 0.1 Basophils # 0.0 Nucleated Red Blood Cells # 0.0 Sodium Level 138 Potassium Level 4.6 Chloride Level 107 Carbon Dioxide Level 25 Anion Gap 11 Blood Urea Nitrogen 13 Creatinine 0.64 Glucose Level 115 Calcium Level 9.2 Medications Medications Current Medications Amlodipine Besylate (Norvasc) 5 mg DAILY PO Last administered on 12/30/16 09: 16; Admin Dose 5 MG; Start 12/29/16 at 09:00 Aspirin (Halfprin) 81 mg DAILY PO Last administered on 12/30/16 09:14; Admin Dose 81 MG; Start 12/29/16 at 09:00 Atorvastatin Calcium (Lipitor) 40 mg QHS PO Last administered on 12/30/16 20: 34; Admin Dose 40 MG; Start 12/28/16 at 21:00 Clopidogrel Bisulfate (plaVIX) 75 mg DAILY PO Last administered on 12/30/16 09 :13; Admin Dose 75 MG; Start 12/29/16 at 09:00 Lisinopril (Zestril) 10 mg DAILY PO Last administered on 12/30/16 09:16; Admin Dose 10 MG; Start 12/29/16 at 09:00 Metoprolol Tartrate (Lopressor) 25 mg BID PO Last administered on 12/30/16 20: 35; Admin Dose 25 MG; Start 12/28/16 at 21:00 Pregabalin (Lyrica) 75 mg DAILY PO Last administered on 12/30/16 09:14; Admin Dose 75 MG; Start 12/29/16 at 09:00 COLT CONWAY Dec 31, 2016 20:08
[2016-12-31] MEDS: ATORVASTATIN 40 MG TAB PO SCH (20:21)
--- NOTE | 2016-12-31 23:36 | GILP ---
DATE OF PROCEDURE: 12/31/2016 INDICATIONS FOR PROCEDURE: A 76-year-old female undergoing this procedure for persistent pain for last four months despite taking PPI. The purpose of this procedure is to evaluate the upper GI tract, find out the cause of her pain. Besides, she had a CAT scan which showed multiple small gallstones. The risks of the procedure, related complications, anesthetic risks, alternatives discussed. Informed consent was obtained. DESCRIPTION OF PROCEDURE: Patient was brought to the GI lab, sedated by Dr. Arboleda. After optimal sedation, scope was passed with much ease into the esophagus, which was grossly within normal limits. Z-line was at 40 cm. Stomach mucosa revealed gastritis. Multiple biopsies obtained to rule out H. pylori infection. Duodenum, first and second part including the ampulla appeared normal. Retroversion in the stomach also was normal. Scope was straightened out and removed with good patient tolerance. IMPRESSION: 1. Normal esophagus. 2. Z-line normal at 40 cm. 3. Tang gastritis, mild to moderate degree. 4. Normal duodenum and ampulla. PLAN: Review histopathology. In the interim, patient will be placed on Carafate since the PPI did not help her. Dictated By: Ulices Camacho MD /eugenio/leonel /Document#: [id number] CC: Jamie Villa MD;*[facility]*
[2017-01-01] VITALS (12 sets, daily range): BP systolic 110–159; BP diastolic 55–72; PULSE 56–83; RESP 17–19
[2017-01-01 08:30] LABS: BASOPHILS % 0.4 % (0.0-2.0); EOSINOPHILS # 0.1 10^3/ul (0.0-0.5); EOSINOPHILS % 1.2 % (0.0-7.0); HEMATOCRIT 38.1 % (37.0-47.0); HEMOGLOBIN 12.1 g/dl (12.0-16.0); LYMPHOCYTES # 1.6 10^3/ul (0.8-2.9); LYMPHOCYTES % 23.4 % (15.0-51.0); MEAN CORPUSCULAR HEMOGLOBIN 27.8 pg (29.0-33.0); MEAN CORPUSCULAR HGB CONC 31.8 g/dl (32.0-37.0); MEAN CORPUSCULAR VOLUME 87.6 fl (82.0-101.0); MEAN PLATELET VOLUME 10.9 fl (7.4-10.4); MONOCYTE # 0.6 10^3/ul (0.3-0.9); MONOCYTES % 8.1 % (0.0-11.0); NEUTROPHIL # 4.5 10^3/ul (1.6-7.5); NEUTROPHILS % 66.5 % (39.0-77.0); PLATELET COUNT 283 10^3/UL (140-415); RED BLOOD COUNT 4.35 10^6/ul (4.20-5.40); RED CELL DISTRIBUTION WIDTH 14.4 % (11.5-14.5); WHITE BLOOD COUNT 6.8 10^3/ul (4.8-10.8)
[2017-01-01] MEDS: ASPIRIN (EC) 81 MG TAB PO SCH (08:38)
[2017-01-01] MEDS: METOPROLOL 25 MG TAB PO SCH ×2 (08:39→21:08)
[2017-01-01] MEDS: LISINOPRIL 10 MG TAB PO SCH (08:39)
[2017-01-01] MEDS: AMLODIPINE 5 MG TAB PO SCH (08:39)
[2017-01-01] MEDS: CLOPIDOGREL 75 MG TAB PO SCH (08:39)
[2017-01-01] MEDS: PREGABALIN 75 MG CAP PO SCH (08:39)
[2017-01-01 09:12] LABS: CALCIUM 9.5 mg/dl (8.4-10.2); CREATININE 0.62 mg/dl (0.44-1.00); POTASSIUM 4.4 mmol/L (3.5-5.1)
--- NOTE | 2017-01-01 19:07 | PN ---
Date/Time of Note Date/Time of Note DATE: 01/01/17 TIME: 19:04 Assessment/Plan VTE Prophylaxis VTE Prophylaxis Intervention: SCD's Lines/Catheters IV C[facility]ter Type (from [facility]): Saline Lock Urinary Cath still in place: No Assessment/Plan Chief Complaint/Hosp Course Patient's complains of mild abdominal pain, denies any nausea and vomiting able to tolerate diet well. Assessment/Plan - Gastritis per EGD, started on Carafate - Abdominal pain. Sludge and multiple tiny stones are noted in the gallbladder per CT abd. Dr. Camacho is following in gastroenterology consultation. - Severe hypokalemia. Potassium replaced. Continue to monitor potassium. - Status post recent coronary artery bypass graft. Continue patient on aspirin and Plavix. - Dyslipidemia. Continue Crestor. - Hypertension. - Paroxysmal atrial fibrillation. Patient is currently in sinus rhythm. Further recommendations based on clinical course. Plan of care discussed with Dr. Jaquez. Problems: Exam/Review of Systems Vital Signs Vitals Vital Signs Date Time Temp Pulse Resp B/P Pulse Ox O2 Delivery O2 Flow Rate FiO2 01/01/17 16:01 83 01/01/17 15:40 98.1 17 110/59 97 12/31/16 19:25 Nasal Cannula 2.0 Intake and Output 12/31/16 12/31/16 01/01/17 15:00 23:00 07:00 Intake Total 0 ml 400 ml Balance 0 ml 400 ml Exam Constitutional: alert Neck: supple Respiratory: normal air movement Cardiovascular: nl pulses Gastrointestinal: soft, tender Extremities: normal pulses Results Result Diagram: 01/01/17 0713 01/01/17 0713 Results 24 hrs Laboratory Tests Test 01/01/17 07:13 White Blood Count 6.8 Red Blood Count 4.35 Hemoglobin 12.1 Hematocrit 38.1 Mean Corpuscular Volume 87.6 Mean Corpuscular Hemoglobin 27.8 L Mean Corpuscular Hemoglobin Concent 31.8 L Red Cell Distribution Width 14.4 Platelet Count 283 Mean Platelet Volume 10.9 H Neutrophils % 66.5 Lymphocytes % 23.4 Monocytes % 8.1 Eosinophils % 1.2 Basophils % 0.4 Nucleated Red Blood Cells % 0.0 Neutrophils # 4.5 Lymphocytes # 1.6 Monocytes # 0.6 Eosinophils # 0.1 Basophils # 0.0 Nucleated Red Blood Cells # 0.0 Sodium Level 137 Potassium Level 4.4 Chloride Level 105 Carbon Dioxide Level 28 Anion Gap 8 Blood Urea Nitrogen 10 Creatinine 0.62 Glucose Level 92 Calcium Level 9.5 Medications Medications Current Medications Amlodipine Besylate (Norvasc) 5 mg DAILY PO Last administered on 01/01/17 08: 39; Admin Dose 5 MG; Start 12/29/16 at 09:00 Aspirin (Halfprin) 81 mg DAILY PO Last administered on 01/01/17 08:38; Admin Dose 81 MG; Start 12/29/16 at 09:00 Atorvastatin Calcium (Lipitor) 40 mg QHS PO Last administered on 12/31/16 20: 21; Admin Dose 40 MG; Start 12/28/16 at 21:00 Clopidogrel Bisulfate (plaVIX) 75 mg DAILY PO Last administered on 01/01/17 08 :39; Admin Dose 75 MG; Start 12/29/16 at 09:00 Lisinopril (Zestril) 10 mg DAILY PO Last administered on 01/01/17 08:39; Admin Dose 10 MG; Start 12/29/16 at 09:00 Metoprolol Tartrate (Lopressor) 25 mg BID PO Last administered on 01/01/17 08: 39; Admin Dose 25 MG; Start 12/28/16 at 21:00 Pregabalin (Lyrica) 75 mg DAILY PO Last administered on 01/01/17 08:39; Admin Dose 75 MG; Start 12/29/16 at 09:00 DIAN LENNON Jan 01, 2017 19:07
[2017-01-01] MEDS: SUCRALFATE 1 GM TAB PO SCH (21:08)
[2017-01-01] MEDS: ATORVASTATIN 40 MG TAB PO SCH (21:08)
--- NOTE | 2017-01-01 22:50 | CONS ---
DATE OF ADMISSION: 12/28/2016 DATE OF CONSULTATION: 01/01/2017 HISTORY OF PRESENT ILLNESS: Patient is a 76-year-old female, underwent endoscopy yesterday for epigastric pain. Patient had gastritis and biopsy showed Helicobacter pylori, and patient had [id number] gastritis on biopsy. Today, she was feeling better. OBJECTIVE: VITAL SIGNS: Stable, eating 100%. ABDOMEN: Benign. LUNGS: Clear. EXTREMITIES: No edema. NEUROLOGIC: Grossly within normal limits and patient was smiling. IMPRESSION: 1. Helicobacter pylori iufsxbxi-[id number] gastritis. 2. Status post coronary artery bypass graft. 3. Gallstone. 4. Paroxysmal atrial fibrillation. 5. Hypertension. PLAN: Patient definitely needs treatment for H. pylori with PPI 40 mg once a day, amoxicillin 1 gram b.i.d., and Biaxin 500 mg p.o. b.i.d., all for 14 days, and hopefully this will resolve her chronic symptoms for last four months. Dictated By: Ulices Camacho MD /eugenio/leonel /Document#: [id number]
[2017-01-02] VITALS (8 sets, daily range): BP systolic 110–130; BP diastolic 57–80; PULSE 49–63; RESP 18–19
[2017-01-02 08:39] LABS: BASOPHILS % 0.3 % (0.0-2.0); EOSINOPHILS # 0.1 10^3/ul (0.0-0.5); EOSINOPHILS % 1.5 % (0.0-7.0); HEMATOCRIT 37.7 % (37.0-47.0); HEMOGLOBIN 12.4 g/dl (12.0-16.0); LYMPHOCYTES # 1.6 10^3/ul (0.8-2.9); MEAN CORPUSCULAR HEMOGLOBIN 28.5 pg (29.0-33.0); MEAN CORPUSCULAR HGB CONC 32.9 g/dl (32.0-37.0); MEAN CORPUSCULAR VOLUME 86.7 fl (82.0-101.0); MEAN PLATELET VOLUME 10.7 fl (7.4-10.4); MONOCYTE # 0.7 10^3/ul (0.3-0.9); MONOCYTES % 9.6 % (0.0-11.0); NEUTROPHIL # 4.4 10^3/ul (1.6-7.5); NEUTROPHILS % 65.3 % (39.0-77.0); PLATELET COUNT 261 10^3/UL (140-415); RED BLOOD COUNT 4.35 10^6/ul (4.20-5.40); RED CELL DISTRIBUTION WIDTH 14.1 % (11.5-14.5); WHITE BLOOD COUNT 6.8 10^3/ul (4.8-10.8)
[2017-01-02 09:03] LABS: CALCIUM 9.4 mg/dl (8.4-10.2); CREATININE 0.66 mg/dl (0.44-1.00); POTASSIUM 4.1 mmol/L (3.5-5.1)
[2017-01-02] MEDS: PREGABALIN 75 MG CAP PO SCH (09:29)
[2017-01-02] MEDS: ASPIRIN (EC) 81 MG TAB PO SCH (09:29)
[2017-01-02] MEDS: CLOPIDOGREL 75 MG TAB PO SCH (09:29)
[2017-01-02] MEDS: AMLODIPINE 5 MG TAB PO SCH (09:31)
[2017-01-02] MEDS: METOPROLOL 25 MG TAB PO SCH (09:31)
[2017-01-02] MEDS: LISINOPRIL 10 MG TAB PO SCH (09:31)
[2017-01-02] MEDS: SUCRALFATE 1 GM TAB PO SCH (09:32)
[2017-01-02] MEDS ORDERED: PANTOPRAZOLE (EC) 40 MG TAB PO ONE (11:30)
--- NOTE | 2017-01-02 11:31 | PN ---
Date/Time of Note Date/Time of Note DATE: 01/02/17 TIME: 11:21 Assessment/Plan VTE Prophylaxis VTE Prophylaxis Intervention: other Lines/Catheters [facility] Saline Lock Urinary Cath still in place: No Assessment/Plan Assessment/Plan - Abdominal pain. Sludge and multiple tiny stones are noted in the gallbladder per CT abd. Dr. Camacho is following in gastroenterology consultation. - Helicobacter pylori jaqnsgix-kz-bqwkza gastritis. SP EGS- 01/01 - per GI - PPI 40 mg once a day - amoxicillin 1 gram b.i.d., and Biaxin 500 mg p.o. b.i.d., - Severe hypokalemia- resolved. Continue to monitor potassium. - Status post recent coronary artery bypass graft. Continue patient on aspirin and Plavix. - Dyslipidemia. Continue Crestor. - Hypertension. - Paroxysmal atrial fibrillation. Patient is currently in sinus rhythm. Further recommendations based on clinical course. Plan of care discussed with Dr. Jaquez. - Subjective 24 Hr Interval Summary Free Text/Dictation c/o of mild abdominal pain, denies any nausea and vomiting, tolerating diet well, GI follows- will follow recommendations. dw staff Respiratory: no complaints Cardiovascular: no complaints Gastrointestinal: pain Musculoskeletal: no complaints Skin: no complaints Neurologic: no complaints Exam/Review of Systems Vital Signs Vitals Vital Signs Date Time Temp Pulse Resp B/P Pulse Ox O2 Delivery O2 Flow Rate FiO2 01/02/17 08:01 55 01/02/17 07:53 98.2 19 130/61 97 12/31/16 19:25 Nasal Cannula 2.0 Intake and Output 01/01/17 01/01/17 01/02/17 15:00 23:00 07:00 Intake Total 750 ml 400 ml Balance 750 ml 400 ml Exam Constitutional: alert, oriented Respiratory: clear to auscultation, normal air movement Cardiovascular: nl pulses, other (SB, HR 50'S), regular rate and rhythm Gastrointestinal: soft, tender Musculoskeletal: nl extremities to inspection Extremities: normal pulses Neurological: nl mental status, nl speech Results Result Diagram: 01/02/17 0742 01/02/17 0742 Results 24 hrs Laboratory Tests Test 01/02/17 07:42 White Blood Count 6.8 Red Blood Count 4.35 Hemoglobin 12.4 Hematocrit 37.7 Mean Corpuscular Volume 86.7 Mean Corpuscular Hemoglobin 28.5 L Mean Corpuscular Hemoglobin Concent 32.9 Red Cell Distribution Width 14.1 Platelet Count 261 Mean Platelet Volume 10.7 H Neutrophils % 65.3 Lymphocytes % 23.0 Monocytes % 9.6 Eosinophils % 1.5 Basophils % 0.3 Nucleated Red Blood Cells % 0.0 Neutrophils # 4.4 Lymphocytes # 1.6 Monocytes # 0.7 Eosinophils # 0.1 Basophils # 0.0 Nucleated Red Blood Cells # 0.0 Sodium Level 137 Potassium Level 4.1 Chloride Level 107 Carbon Dioxide Level 24 Anion Gap 10 Blood Urea Nitrogen 8 Creatinine 0.66 Glucose Level 98 Calcium Level 9.4 Medications Medications Current Medications Amlodipine Besylate (Norvasc) 5 mg DAILY PO Last administered on 01/02/17 09: 31; Admin Dose 5 MG; Start 12/29/16 at 09:00 Aspirin (Halfprin) 81 mg DAILY PO Last administered on 01/02/17 09:29; Admin Dose 81 MG; Start 12/29/16 at 09:00 Atorvastatin Calcium (Lipitor) 40 mg QHS PO Last administered on 01/01/17 21: 08; Admin Dose 40 MG; Start 12/28/16 at 21:00 Clopidogrel Bisulfate (plaVIX) 75 mg DAILY PO Last administered on 01/02/17 09 :29; Admin Dose 75 MG; Start 12/29/16 at 09:00 Lisinopril (Zestril) 10 mg DAILY PO Last administered on 01/02/17 09:31; Admin Dose 10 MG; Start 12/29/16 at 09:00 Metoprolol Tartrate (Lopressor) 25 mg BID PO Last administered on 01/02/17 09: 31; Admin Dose 25 MG; Start 12/28/16 at 21:00 Pregabalin (Lyrica) 75 mg DAILY PO Last administered on 01/02/17 09:29; Admin Dose 75 MG; Start 12/29/16 at 09:00 Sucralfate (Carafate) 1 gm QID PO Last administered on 01/02/17 09:32; Admin Dose 1 GM; Start 01/01/17 at 21:00 COLT CONWAY Jan 02, 2017 11:31
--- NOTE | 2017-01-02 12:43 | PDOCDIS ---
Discharge Instructions CONDITION Patient Condition: Stable HOME CARE INSTRUCTIONS: Special Diet: soft ACTIVITY: Activity Restrictions: Slowly Increase Activity Rest between Activity Avoid heavy lifting Do not Drive Do not operate Machinery Do not operate Power Tool Avoid Heavy Housework Bathing Restrictions: Sponge Bath FOLLOW UP/APPOINTMENTS Follow-up Plan FU with PMD X 1 WEEK FU WITH MANAGER PHOTO as recommended Call 911 or go to the nearest hospital if symptoms get worse. Plan of care DW dR Regan/staff/patient. COLT CONWAY Jan 02, 2017 12:43
--- NOTE | 2017-01-02 12:45 | DS ---
Date/Time of Note Date/Time of Note DATE: 01/02/17 TIME: 12:45 Discharge Summary Admission/Discharge Info Admit Date/Time Dec 28, 2016 at 08:53 Discharge Date/Time Hospital Course Patient's complains of mild abdominal pain, denies any nausea and vomiting able to tolerate diet well. Assessment/Plan - Gastritis per EGD, started on Carafate - Abdominal pain. Sludge and multiple tiny stones are noted in the gallbladder per CT abd. Dr. Camacho is following in gastroenterology consultation. - Severe hypokalemia. Potassium replaced. Continue to monitor potassium. - Status post recent coronary artery bypass graft. Continue patient on aspirin and Plavix. - Dyslipidemia. Continue Crestor. - Hypertension. - Paroxysmal atrial fibrillation. Patient is currently in sinus rhythm. Further recommendations based on clinical course. Plan of care discussed with Dr. Jaquez. Home Meds Reported Medications Potassium Chloride* (Potassium Chloride*) 8 Meq Capsule.er, 8 MEQ PO DAILY, CAP 12/28/16 Furosemide* (Furosemide*) 20 Mg Tablet, 20 MG PO DAILY, #60 TAB 12/28/16 Pantoprazole* (Protonix*) 40 Mg Tablet.dr, 40 MG PO DAILY, TAB 04/19/15 Metoprolol Tartrate* (Lopressor*) 25 Mg Tab, 25 MG PO BID, #60 TAB 04/19/15 Lisinopril* (Lisinopril*) 10 Mg Tablet, 10 MG PO DAILY, #30 TAB 04/19/15 Acetaminophen* (Acetaminophen*) 650 Mg Tablet, 650 MG PO Q6H Y for PAIN AND OR ELEVATED TEMP, #30 TAB 04/19/15 Clopidogrel Bisulfate (Clopidogrel) 75 Mg Tablet, 75 MG PO DAILY, #30 TAB 04/19/15 Atorvastatin* (Atorvastatin*) 40 Mg Tablet, 40 MG PO QHS, #30 TAB 04/19/15 Rosuvastatin Calcium* (Crestor*) 5 Mg Tablet, 10 MG PO 09/01/13 Pregabalin* (Lyrica*) 75 Mg Capsule, 75 MG PO DAILY, CAP 09/01/13 Dexlansoprazole (Dexilant) 30 Mg Cap., 60 MG PO 09/01/13 Aspirin* (Aspirin* EC) 81 Mg Tablet.dr, 81 MG PO DAILY 09/01/13 Amlodipine Besylate* (Amlodipine Besylate*) 5 Mg Tablet, 5 MG PO DAILY, TAB 09/01/13 Tramadol HCl (Tramadol HCl) 50MG Tab, 50 MG PO BID, TAB 09/01/13 Nabumetone* (Nabumetone*) 750 Mg Tablet, 750 MG PO BID, TAB 09/01/13 Calcium Carb & Cit-Vitamin D3 (Calcium + D3 ER) 1 Each Tablet.er, 1 EACH PO DAILY 09/01/13 Bisacodyl* (Bisacodyl*) 10 Mg Supp, 10 MG PO DAILY Y for CONSTIPATION, SUPP 09/01/13 Follow-up Plan FU with PMD X 1 WEEK FU WITH BUSINESS SUPPORT as recommended Call 911 or go to the nearest hospital if symptoms get worse. Plan of care DW dR Regan/staff/patient. Primary Care Provider Adama Caban Pending Labs Laboratory Tests Test 01/02/17 07:42 White Blood Count 6.810^3/ul (4.8-10.8) Red Blood Count 4.3510^6/ul (4.20-5.40) Hemoglobin 12.4g/dl (12.0-16.0) Hematocrit 37.7% (37.0-47.0) Mean Corpuscular Volume 86.7fl (82.0-101.0) Mean Corpuscular Hemoglobin 28.5pg (29.0-33.0) Mean Corpuscular Hemoglobin Concent 32.9g/dl (32.0-37.0) Red Cell Distribution Width 14.1% (11.5-14.5) Platelet Count 58070^3/UL (140-415) Mean Platelet Volume 10.7fl (7.4-10.4) Neutrophils % 65.3% (39.0-77.0) Lymphocytes % 23.0% (15.0-51.0) Monocytes % 9.6% (0.0-11.0) Eosinophils % 1.5% (0.0-7.0) Basophils % 0.3% (0.0-2.0) Nucleated Red Blood Cells % 0.0/100WBC (0.0-0.0) Neutrophils # 4.410^3/ul (1.6-7.5) Lymphocytes # 1.610^3/ul (0.8-2.9) Monocytes # 0.710^3/ul (0.3-0.9) Eosinophils # 0.110^3/ul (0.0-0.5) Basophils # 0.010^3/ul (0.0-0.1) Nucleated Red Blood Cells # 0.010^3/ul (0.0-0.0) Sodium Level 137mmol/L (135-144) Potassium Level 4.1mmol/L (3.5-5.1) Chloride Level 107mmol/L (97-110) Carbon Dioxide Level 24mmol/L (21-31) Anion Gap 10 (8-16) Blood Urea Nitrogen 8mg/dl (7-20) Creatinine 0.66mg/dl (0.44-1.00) Glucose Level 98mg/dl (70-220) Calcium Level 9.4mg/dl (8.4-10.2) COLT CONWAY Jan 02, 2017 12:45
--- NOTE | 2017-01-02 12:59 | CONS ---
Date/Time of Note Date/Time of Note DATE: 01/02/17 TIME: 12:58 Assessment/Plan Assessment/Plan Additional Assessment/Plan IMPRESSION: 1. Helicobacter pylori [id number] gastritis. 2. Status post coronary artery bypass graft. 3. Gallstone. 4. Paroxysmal atrial fibrillation. 5. Hypertension. PLAN: Patient definitely needs treatment for H. pylori with PPI 40 mg once a day, amoxicillin 1 gram b.i.d., and Biaxin 500 mg p.o. b.i.d., all for 14 days, and hopefully this will resolve her chronic symptoms for last four months. Discussed with the son prescription given and ask him to see me in the office in 2 weeks Consultation Date/Type/Reason Admit Date/Time Dec 28, 2016 at 08:53 24 HR Interval Summary Constitutional: improved, no complaints Exam/Review of Systems Vital Signs Vitals Vital Signs Date Time Temp Pulse Resp B/P Pulse Ox O2 Delivery O2 Flow Rate FiO2 01/02/17 11:56 98.2 60 19 118/57 97 12/31/16 19:25 Nasal Cannula 2.0 Intake and Output 01/01/17 01/01/17 01/02/17 15:00 23:00 07:00 Intake Total 750 ml 400 ml Balance 750 ml 400 ml Exam Constitutional: alert, oriented, well developed Psych: nl mood/affect, no complaints Head: atraumatic, normocephalic Eyes: EOMI, PERRL, nl conjunctiva, nl lids, nl sclera ENMT: nl external ears & nose, nl lips & teeth, nl nasal mucosa & septum Neck: non-tender, supple Respiratory: clear to auscultation, normal air movement Cardiovascular: nl pulses, regular rate and rhythm Gastrointestinal: nl liver, spleen, non-tender, soft Musculoskeletal: nl extremities to inspection, nl gait and stance Extremities: normal pulses Neurological: COMM[employer] BROKER II-XII intact, nl mental status, nl speech, nl strength Skin: nl turgor, No rash or lesions Lymph: nl lymph nodes Results Result Diagram: 01/02/17 0742 01/02/17 0742 Results 24 hrs Laboratory Tests Test 01/02/17 07:42 White Blood Count 6.8 Red Blood Count 4.35 Hemoglobin 12.4 Hematocrit 37.7 Mean Corpuscular Volume 86.7 Mean Corpuscular Hemoglobin 28.5 L Mean Corpuscular Hemoglobin Concent 32.9 Red Cell Distribution Width 14.1 Platelet Count 261 Mean Platelet Volume 10.7 H Neutrophils % 65.3 Lymphocytes % 23.0 Monocytes % 9.6 Eosinophils % 1.5 Basophils % 0.3 Nucleated Red Blood Cells % 0.0 Neutrophils # 4.4 Lymphocytes # 1.6 Monocytes # 0.7 Eosinophils # 0.1 Basophils # 0.0 Nucleated Red Blood Cells # 0.0 Sodium Level 137 Potassium Level 4.1 Chloride Level 107 Carbon Dioxide Level 24 Anion Gap 10 Blood Urea Nitrogen 8 Creatinine 0.66 Glucose Level 98 Calcium Level 9.4 Medications Medications Current Medications Amlodipine Besylate (Norvasc) 5 mg DAILY PO Last administered on 01/02/17 09: 31; Admin Dose 5 MG; Start 12/29/16 at 09:00 Aspirin (Halfprin) 81 mg DAILY PO Last administered on 01/02/17 09:29; Admin Dose 81 MG; Start 12/29/16 at 09:00 Atorvastatin Calcium (Lipitor) 40 mg QHS PO Last administered on 01/01/17 21: 08; Admin Dose 40 MG; Start 12/28/16 at 21:00 Clopidogrel Bisulfate (plaVIX) 75 mg DAILY PO Last administered on 01/02/17 09 :29; Admin Dose 75 MG; Start 12/29/16 at 09:00 Lisinopril (Zestril) 10 mg DAILY PO Last administered on 01/02/17 09:31; Admin Dose 10 MG; Start 12/29/16 at 09:00 Metoprolol Tartrate (Lopressor) 25 mg BID PO Last administered on 01/02/17 09: 31; Admin Dose 25 MG; Start 12/28/16 at 21:00 Pregabalin (Lyrica) 75 mg DAILY PO Last administered on 01/02/17 09:29; Admin Dose 75 MG; Start 12/29/16 at 09:00 Amoxicillin (Amoxicillin) 1,000 mg BID PO Last administered on 01/02/17 12:47 ; Admin Dose 1,000 MG; Start 01/02/17 at 13:00 Pantoprazole (Protonix Tab) 40 mg DAILY@06 PO ; Start 01/03/17 at 06:00 Clarithromycin (Biaxin) 500 mg BID PO Last administered on 01/02/17 12:47; Admin Dose 500 MG; Start 01/02/17 at 13:00 MERT AGUAYO MD Jan 02, 2017 12:59
[2017-01-02] MEDS ORDERED: CLARITHROMYCIN 500 MG TAB PO SCH (13:00)
[2017-01-02] MEDS ORDERED: AMOXICILLIN 500 MG CAP PO SCH (13:00)
[2017-01-03] MEDS ORDERED: PANTOPRAZOLE (EC) 40 MG TAB PO SCH (06:00)
== END 2017-01-02 14:12 | disposition home or self-care (01) | DRG 392 ==
LOC: E/R 06:46 → MS4 08:53
PROVIDERS: ADMIT Internal Medicine; ATTEND Internal Medicine
PROC: 0DB68ZX Excision of Stomach, Via Natural or Artificial Opening Endoscopic, Diagnostic (ICD-10-PCS; principal; 2016-12-31 18:00)
DX: K29.60 Other gastritis without bleeding (principal); E87.1 Hypo-osmolality and hyponatremia; I48.0 Paroxysmal atrial fibrillation; R33.9 Retention of urine, unspecified; I25.10 Atherosclerotic heart disease of native coronary artery without angina pectoris; I25.2 Old myocardial infarction; Z95.5 Presence of coronary angioplasty implant and graft; Z95.1 Presence of aortocoronary bypass graft; I10 Essential (primary) hypertension; E78.5 Hyperlipidemia, unspecified; E87.6 Hypokalemia; K80.80 Other cholelithiasis without obstruction; B96.81 Helicobacter pylori [H. pylori] as the cause of diseases classified elsewhere
CPT/HCPCS: 36415; 71010; 74176; 80048; 80053; 81003; 83690; 84484; 85025; 87086; 88305; 88312; 93005; 96365; 96375; J1885; J2060; J2405; J3475; J3480; J7040